=== PATIENT | male | born 1950 | race Caucasian/White ===

== ENCOUNTER 2021-09-11 17:40 | Observation (INO) | payer MEDICARE, OTHER ==
[~2021-09-11] VITALS: Ht 175.3 cm; Wt 84.4 kg
[2021-09-11 18:30] LABS: HEMOGLOBIN 12.8 gm/dl (14.0-17.5); RED BLOOD COUNT 4.15 M/UL (4.20-5.50)
[2021-09-11 19:08] LABS: BUN/CREATININE RATIO 10 (0-10)
[2021-09-12 03:06] LABS: HEMOGLOBIN 11.8 gm/dl (14.0-17.5); RED BLOOD COUNT 3.84 M/UL (4.20-5.50); WHITE BLOOD COUNT 11.4 K/UL (4.5-11.0)
[2021-09-12 03:23] LABS: BUN/CREATININE RATIO 11 (0-10)
[2021-09-12] MEDS ORDERED: ATORVASTATIN CA80 MG PO (10:43)
[2021-09-12] MEDS ORDERED: CLOPIDOGREL75 MG PO (10:43)
[2021-09-12] MEDS ORDERED: LEVOTHYROXINE25 MCG PO (10:44)
[2021-09-12] MEDS ORDERED: PROTONIX40 MG PO (10:45)
[2021-09-12] MEDS ORDERED: METOPROLOL TART25 MG PO (10:45)
[2021-09-12] MEDS ORDERED: FLOMAX 0.4 MG0.4 MG PO (10:46)
[2021-09-12] MEDS ORDERED: ASPIRIN EC81 MG PO (10:47)
[2021-09-12] MEDS ORDERED: VITAMIN B-12500 MCG PO (10:48)
[2021-09-12] MEDS ORDERED: ONE-A-DAY MEN'1 EACH PO (10:50)
[2021-09-12] MEDS ORDERED: OMNICEF 300 MG300 MG PO (14:45)
[2021-09-12] MEDS ORDERED: AZITHROMYCIN500 MG PO (14:46)
== END 2021-09-12 16:54 | disposition home or self-care (01) ==
LOC: ER1 17:40 → M/S 20:55 → CDU 20:55 → M/S 22:26
PROVIDERS: Internal Medicine; ADMIT Internal Medicine
DX: J18.9 Pneumonia, unspecified organism (principal); I12.9 Hypertensive chronic kidney disease with stage 1 through stage 4 chronic kidney disease, or unspecified chronic kidney disease; N18.30 Chronic kidney disease, stage 3 unspecified; N40.0 Benign prostatic hyperplasia without lower urinary tract symptoms; I25.10 Atherosclerotic heart disease of native coronary artery without angina pectoris; K21.9 Gastro-esophageal reflux disease without esophagitis; J90 Pleural effusion, not elsewhere classified; Z79.899 Other long term (current) drug therapy; Z95.5 Presence of coronary angioplasty implant and graft
CPT/HCPCS: 0240U; 36415; 71045; 78580; 80048; 80053; 81001; 82550; 82553; 83605; 84484; 85025; 85379; 87040; 93005; 93970; 96372; 96375; 96376; 99285; A9540; G0378; J0456; J0696; J1650; J7030; Q9967